=== PATIENT | male | born 1985 | race Caucasian/White ===

== ENCOUNTER 2018-10-01 22:42 | Emergency (ER) | payer BC ==
[~2018-10-01] VITALS: Ht 180.3 cm; Wt 90.7 kg
--- NOTE | 2018-10-01 22:30 | NUR ---
ED Nurse Note: pt brought in by [place]. per patient he was on treadmill at his apartment and felt dizzy , SOB then passed out. a by stander called 911. patient is alert x4, ambulatory. noted with a bump to left forehead area with abhishek abrasion. BP 130/79, Hr 90. T 98.1, RR 19. pain of 4/10 to left forehead area. bed is in lowest position. safety ensured. will continue to monitor.
[2018-10-01 22:42] VITALS: BP 128/80
[2018-10-01] MEDS ORDERED: Ketorolac 30mg Inj IV ONE (22:45)
--- NOTE | 2018-10-01 22:47 | Emergency Room Report ---
History of Present Illness General Chief Complaint: Syncope Source: Patient Present Illness HPI Is a 33-year-old male with no past medical history. He presents with chief complaint of syncope and head injury. He was at the gym starting his workout. He was on the treadmill for a few minutes and he felt lightheaded. He stopped and went to drink some water. Next thing he knew he woke up on the ground. He hit his head against some gym equipment. He felt lightheaded before passing out. Denies any diaphoresis. Denies any fast heartbeat. Never had this problem before. No history of sudden in young members in the family. Denies any other complaint. No alcohol or drugs. Has not eaten dinner tonight. Allergies: Coded Allergies: No Known Allergies (Unverified , 10/01/18) Patient History Past Medical History: see triage record, old chart reviewed Past Surgical History: none Pertinent Family History: none Social History: Denies: smoking Immunizations: other Reviewed Nursing Documentation: PMH: Agreed; PSxH: Agreed Nursing Documentation-PMH Past Medical History: No Stated History Review of Systems Eye: Denies: eye pain, blurred vision ENT: Denies: ear pain, nose congestion, throat swelling Respiratory: Denies: cough, shortness of breath Cardiovascular: Denies: chest pain, palpitations Gastrointestinal: Denies: abdominal pain, diarrhea, nausea, vomiting Musculoskeletal: Denies: back pain, joint pain Skin: Denies: rash Neurological: Reports: headache; Denies: numbness Endocrine: Denies: increased thirst, increased urine Hematologic/Lymphatic: Denies: easy bruising All Other Systems: negative except mentioned in HPI Physical Exam Vital Signs Date Time Temp Pulse Resp B/P (MAP) Pulse Ox O2 Delivery O2 Flow Rate FiO2 10/01/18 22:28 97.9 105 16 135/77 (96) 98 Vitals normal Sp02 EP Interpretation: reviewed, normal General Appearance: well appearing, no apparent distress, alert Head: normocephalic, other - Abrasion and hematoma to the right forehead. Eyes: bilateral eye PERRL, bilateral eye EOMI ENT: hearing grossly normal, normal pharynx Neck: full range of motion, supple, no meningismus Respiratory: chest non-tender, lungs clear, normal breath sounds Cardiovascular #1: regular rate, rhythm, no murmur Gastrointestinal: normal bowel sounds, non tender, no mass, no organomegaly, no bruit, non-distended Musculoskeletal: back normal, gait/station normal, normal range of motion Psychiatric: mood/affect normal Medical Decision Making Diagnostic Impression: Primary Impression: Syncope Qualified Codes: R55 - Syncope and collapse Additional Impression: Head injury, acute Qualified Codes: S09.90XA - Unspecified injury of head, initial encounter ER Course Patient presents with a syncope and head injury. Could be secondary to dehydration. Could be arrhythmia. Patient has no symptoms here now. Will refer to cardiology for further work-up. EKG Diagnostic Results Rate: normal Rhythm: NSR ST Segments: no acute changes Rhythm Strip Diag. Results EP Interpretation: yes Rate: 88 Rhythm: NSR, no PVC's, no ectopy CT/MRI/US Diagnostic Results CT/MRI/US Diagnostic Results : Imaging Test Ordered: CT head Impression Read by radiologist. Right frontal scalp soft tissue swelling. Otherwise negative. Last Vital Signs Date Time Temp Pulse Resp B/P (MAP) Pulse Ox O2 Delivery O2 Flow Rate FiO2 10/01/18 22:28 97.9 105 16 135/77 (96) 98 Status: improved Disposition: HOME, SELF-CARE Condition: Stable Patient Instructions: Syncope Additional Instructions: No strenuous activity until seen by embossing calender operator. You will need a referral to see embossing calender operator for echocardiogram and or Holter monitor. Return if symptoms worsen. Follow-up with your doctor in 7 days. Pelon Luong MD Oct 01, 2018 22:47
--- NOTE | 2018-10-01 22:58 | Diagnostic Imaging Report ---
Indications: Head trauma, fall, syncope Technique: Spiral acquisitions obtained through the brain. Angled axial and coronal 5 x 5 mm slices were reconstructed. Total dose length product 1404.24 mGycm. CTDI vol(s) 70.38 mGy. Dose reduction achieved using automated exposure control Comparison: None. Findings: There is a right supraorbital scalp hematoma. No underlying calvarial fracture. No acute intracranial hemorrhage or edema, mass effect, nor midline shift. Normal salas-white differentiation. Normal-sized ventricles and extra-axial CSF spaces. Visualized orbits are unremarkable. The sinuses are clear. The mastoids are clear. The calvarium is intact Impression: Evidence of right supraorbital scalp soft tissue injury. Negative for acute intracranial bleed or mass effect This agrees with the preliminary interpretation provided overnight by [facility]. The CT scanner at [facility] is accredited by the [employer] and the scans are performed using protocols designed to limit radiation exposure to as low as reasonably achievable to attain images of sufficient resolution adequate for diagnostic evaluation.
[2018-10-01 23:16] LABS: BASOPHILS % (AUTO) 0.9 % (0.0-2.0); EOSINOPHILS % (AUTO) 3.3 % (0.0-3.0); HEMATOCRIT 40.3 % (42.0-52.0); HEMOGLOBIN 13.8 G/DL (14.2-18.0); LYMPHOCYTES % (AUTO) 23.5 % (20.0-45.0); MEAN CORPUSCULAR VOLUME 89 FL (80-99); MONOCYTES % (AUTO) 6.1 % (1.0-10.0); NEUTROPHILS % (AUTO) 66.2 % (45.0-75.0); PLATELET COUNT 252 K/UL (150-450); RED BLOOD COUNT 4.52 M/UL (4.70-6.10); WHITE BLOOD COUNT 10.6 K/UL (4.8-10.8)
[2018-10-01 23:21] LABS: ANION GAP 10 mmol/L (5-15); BLOOD UREA NITROGEN 7 mg/dL (7-18); CALCIUM 9.3 MG/DL (8.5-10.1); CARBON DIOXIDE 28 MMOL/L (21-32); CHLORIDE 101 MMOL/L (98-107); CREATININE 1.3 MG/DL (0.55-1.30); POTASSIUM 3.7 MMOL/L (3.5-5.1); SODIUM 139 MMOL/L (136-145)
[2018-10-01] MEDS ORDERED: Bacitracin Oint UD TOPIC ONE ×2 (23:36→23:45)
[2018-10-02 00:32] VITALS: BP 122/80
--- NOTE | 2018-10-02 00:32 | NUR ---
ER DISCHARGE NOTE: Patient is cleared to be discharged per ERMD, pt is aox4, on room air, with stable vital signs. pt was given dc instructions, pt was able to verbalize understanding, pt id band and iv site removed without complications. pt is able to ambulate with steady gait. pt took all belongings.
--- NOTE | 2018-10-02 15:14 | Cardiology Report ---
APPROVED REPORT EKG Measurement Heart [id number] Normal sinus rhythm Possible Left atrial enlargement Borderline ECG
== END 2018-10-02 00:32 | disposition home or self-care (01) ==
LOC: EDBD 22:42 → EMR 10-02 00:26
DX: R55 Syncope and collapse (principal); S00.83XA Contusion of other part of head, initial encounter; S00.81XA Abrasion of other part of head, initial encounter; Y93.A1 Activity, exercise machines primarily for cardiorespiratory conditioning; Y92.39 Other specified sports and athletic area as the place of occurrence of the external cause
CPT/HCPCS: 36415; 70450; 80048; 84484; 85025; 93005; 96361; 96374; 99284; J1885